=== PATIENT | male | born 1990 | race Caucasian/White ===

== ENCOUNTER 2019-01-01 19:27 | Emergency (ER) | payer BC, OTHER ==
[2019-01-01 19:54] VITALS: BP 144/77
--- NOTE | 2019-01-01 19:58 | UC ---
Lower Extremity/Ankle HPI - History of Current Complaint Chief Complaint: UCLowerExtremity Stated Complaint: LEFT ANKLE INJURY Time Seen by Provider: 01/01/19 19:46 Pain Intensity: 2 - Allergies/Home Medications Allergies/Adverse Reactions: Allergies Allergy/AdvReac Type Severity Reaction Status Date / Time No Known Allergies Allergy Verified 01/01/19 19:42 Home Medications: Home Medications FLUoxetine CAP* [PROzac CAP*] 30 mg PO DAILY 01/01/19 [History Confirmed ] Ibuprofen 600 mg PO PRN 01/01/19 [History] Metoprolol Tartrate TAB* [Lopressor TAB*] 25 mg PO DAILY 01/01/19 [History Confirmed 01/01/19] Omeprazole (Nf) [Prilosec (NF)] 01/01/19 [History] PMH/Surg Hx/FS Hx/Imm Hx - Surgical History Surgical History: None - Social History Alcohol Use: Weekly Substance Use Type: None Smoking Status (MU): Current Some Day Smoker Physical Exam Vital Signs: Initial Vital Signs Temp 98.5 F 01/01/19 19:45 Pulse 92 01/01/19 19:45 Resp 18 01/01/19 19:45 BP 144/77 01/01/19 19:45 Pulse Ox 99 01/01/19 19:45 Diagnostics - Radiology No standard instances Radiology Interpretation Completed By: ED Physician Summary of Radiographic Findings: Suspected chip fracture at distal end of fibula tip. unclear if this is old. Lower Extremity Course/Dx - Course Course Of Treatment: L akle Discharge - Sign-Out/Discharge Documenting (check all that apply): Patient Departure All imaging exams completed and their final reports reviewed: No - Discharge Plan Condition: Good Disposition: HOME Patient Education Materials: Ankle Fracture (ED) Referrals: Fortino Connell MD [Medical Doctor] - Additional Instructions: It is not certain but it does look like a possible chipped fracture. A radiologist will do the final read tomorrow. Please follow up with ortho. - Billing Disposition and Condition Condition: GOOD Disposition: Home
--- NOTE | 2019-01-02 14:30 | UC ---
- Progress Note Progress Note: final read reviewed. Small avulsion fracture questionable. Person dx with fracture and referred to Dr. connell. No change in plan. Course/Dx - Diagnoses Provider Diagnoses: Ankle fracture Discharge - Sign-Out/Discharge Documenting (check all that apply): Patient Departure All imaging exams completed and their final reports reviewed: Yes - Discharge Plan Condition: Good Disposition: HOME Patient Education Materials: Ankle Fracture (ED) Referrals: Fortino Connell MD [Medical Doctor] - Additional Instructions: It is not certain but it does look like a possible chipped fracture. A radiologist will do the final read tomorrow. Please follow up with ortho. - Billing Disposition and Condition Condition: GOOD Disposition: Home
== END 2019-01-01 20:36 | disposition home or self-care (01) ==
LOC: UCCORT 19:27
DX: S82.892A Other fracture of left lower leg, initial encounter for closed fracture (principal); X58.XXXA Exposure to other specified factors, initial encounter; Y92.9 Unspecified place or not applicable
CPT/HCPCS: 99213; G0463

== ENCOUNTER 2019-02-27 12:31 | Emergency (ER) | payer BC ==
[2019-02-27 14:09] VITALS: BP 144/83
[2019-02-27] MEDS ORDERED: Tetan/Diph/Pertus SYR(Tdap)* 0.5 ML SYR(BOOSTRIX) use SYR IM ONE (14:22)
--- NOTE | 2019-02-27 14:35 | UC ---
Skin Complaint HPI - HPI Summary HPI Summary: Pt presents with c/o left thumb laceration that occurred yesterday at ~ 1300. Pt states that he pured rubbing alcohol and hydrogen peroxide on wound and cleaned wound prior to arrival to clinic. Pt is unsure of last tetanus. - History of Current Complaint Chief Complaint: UCLaceration Time Seen by Provider: 02/27/19 14:15 Stated Complaint: LAC ON LT THUMB Hx Obtained From: Patient Onset/Duration: Sudden Onset, Still Present Skin Exposure Onset/Duration: Days Ago - 1 days aog Timing: Constant Onset Severity: Moderate Current Severity: Mild Pain Intensity: 0 Location: Discrete - left thumb Aggravating Factor(s): Touch Alleviating Factor(s): Other - dressing with compression Associated Signs & Symptoms: Positive: Tenderness Related History: Trauma - Allergy/Home Medications Allergies/Adverse Reactions: Allergies Allergy/AdvReac Type Severity Reaction Status Date / Time No Known Allergies Allergy Verified 02/27/19 14:06 PMH/Surg Hx/FS Hx/Imm Hx Previously Healthy: Yes - Surgical History Surgical History: None - Family History Known Family History: Positive: Cardiac Disease - Social History Occupation: Employed Full-time - is a [employer] Lives: With Family Alcohol Use: Weekly Substance Use Type: Marijuana Substance Use Comment - Amount & Last Used: "Once in a while" Smoking Status (MU): Current Some Day Smoker Type: Cigars Amount Used/How Often: "Once in a while" Have You Smoked in the Last Year: Yes - Immunization History Most Recent Tetanus Shot: "I have no idea." Vaccination Up to Date: No Review of Systems All Other Systems Reviewed And Are Negative: Yes Constitutional: Positive: Negative Skin: Positive: Other - laceration Eyes: Positive: Negative ENT: Positive: Negative Respiratory: Positive: Negative Cardiovascular: Positive: Negative Gastrointestinal: Positive: Negative Genitourinary: Positive: Negative Motor: Positive: Negative Neurovascular: Positive: Negative Musculoskeletal: Positive: Negative, Myalgia - at laceration site Neurological: Positive: Negative Psychological: Positive: Negative Is Patient Immunocompromised?: No Physical Exam Triage Information Reviewed: Yes Appearance: Well-Appearing Vital Signs: Initial Vital Signs Temp 98 F 02/27/19 14:04 Pulse 72 02/27/19 14:04 Resp 16 02/27/19 14:04 BP 144/83 02/27/19 14:04 Pulse Ox 98 02/27/19 14:04 Vital Signs Reviewed: Yes Eye Exam: Normal ENT Exam: Normal ENT: Positive: Hearing grossly normal Dental Exam: Normal Respiratory: Positive: No respiratory distress Musculoskeletal Exam: Normal Musculoskeletal: Positive: Strength Intact, ROM Intact Neurological Exam: Normal Neurological: Positive: Alert Psychological Exam: Normal Skin Exam: Other - laceration to left humb, wound has begun to close, time frome for suture repair is delayed beyond recommended Laceration Repair - Laceration Repair 1 Description: Irregular Laceration Size After Repair: Length (cm) - 2, Width (mm) - 4, Depth (mm) - 3 Modified For Repair: No Cleansing Completed Via Routine Prep: Yes Closure Material: SteriStrips Closure Method: Single Layer Suture Of: Skin Course/Dx - Differential Diagnoses - Skin Complaint Differential Diagnoses: Cellulitis - Diagnoses Provider Diagnosis: Laceration of thumb Discharge - Sign-Out/Discharge Documenting (check all that apply): Patient Departure All imaging exams completed and their final reports reviewed: No Studies - Discharge Plan Condition: Stable Disposition: HOME Prescriptions: Cephalexin CAP* [Keflex 500 CAP*] 500 mg PO Q8H #21 cap Patient Education Materials: Laceration (DC), Laceration Without Closure (ED) Referrals: Magdalena Yanes NP [Primary Care Provider] - If Needed Additional Instructions: PLEASE MONITOR FOR ANY SIGNS OR SYMPTOMS FOR INFECTION THAT INCLUDE REDNESS, PURULENT DISCHARGE, RED STREAKING, FEVER, CHILLS OR WORSENING TENDERNESS. - Billing Disposition and Condition Condition: STABLE Disposition: Home
== END 2019-02-27 15:06 | disposition home or self-care (01) ==
LOC: UCCORT 12:31
DX: S61.012A Laceration without foreign body of left thumb without damage to nail, initial encounter (principal); F17.210 Nicotine dependence, cigarettes, uncomplicated; X58.XXXA Exposure to other specified factors, initial encounter; Y92.9 Unspecified place or not applicable
CPT/HCPCS: 12001; 90471; 90715; 99212; G0463